=== PATIENT | male | born 2000 | race African-American/Black ===

== ENCOUNTER 2019-11-02 12:15 | Emergency (ER) | payer MEDICAID ==
[~2019-11-02] VITALS: Ht 167.6 cm; Wt 69.6 kg
[2019-11-02 12:23] VITALS: BP 123/78
[2019-11-02] MEDS ORDERED: ONDANSETRON ODT 8 MG ONE (13:08)
[2019-11-02] MEDS ORDERED: ONDANSETRON ODT 8 MG PO ONE (13:30)
== END 2019-11-02 13:20 | disposition home or self-care (01) ==
LOC: ED 13:10 → EDBD 13:20 → ED 13:20
DX: R10.84 Generalized abdominal pain (principal); R11.2 Nausea with vomiting, unspecified; F17.210 Nicotine dependence, cigarettes, uncomplicated
CPT/HCPCS: 99283; Q0162